=== PATIENT | male | born 1945 | race Caucasian/White ===

== ENCOUNTER 2017-11-10 05:28 | Day surgery (SDC) | payer OTHER ==
[~2017-11-10] VITALS: Ht 175.3 cm; Wt 87.1 kg
--- NOTE | ~2017-11-10 | O ---
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 PROCEDURE: Right lower lid ectropion repair with right lower lid and cheek lift and full thickness skin graft from right shoulder to right lower lid. SURGEON: Sarath Bridges M.D. DIRECTOR HOSPICE OPERATIONS: None. ANESTHESIA: General. COMPLICATIONS: None. 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 He presents today for right lower lid and cheek procedure in order to attempt to improve the orbital anatomy such that he will be able to wear a prosthesis. Informed consent was obtained to include but not limited to the potential risk for bleeding, infection, and the failure to improve the problem, necessitating further surgery. DESCRIPTION OF PROCEDURE: The patient was taken to the operating room where general anesthesia was administered. The right lower lid, the right cheek, the right lateral canthus, the right medial canthus, the right infratemporal fossa and the right supraclavicular areas were all anesthetized with Xylocaine with epinephrine mixed with Marcaine and Wydase. The patient was subsequently prepped and draped in the usual sterile fashion. A moistened sponge was placed on the left eye. The right lateral canthus was then clamped with a Russell clamp and a sharp canthotomy and cantholysis was performed. There was a very dense cicatrix from [address] [address] OPERATIVE REPORT Name: JAKE VIZCARRA Room #: 150-4 [facility]..#: [id number] Admission: 11/10/17 Attend Phys: Sarath Bridges MD Discharge: Date of : 49 Report #: [id number] his prior trauma holding the right lower lid margin and the lower lid retractors to the inferior orbital rim. A tarsal strip was prepared laterally, removing the lash bearing portion of the redundant lid margin and the redundant tarsal plate. Hemostasis was then re-achieved. A subciliary incision was then made across the entire width of the lid. The dissection was then carried down into the cheek through the lower lid to release all of the cicatrix allowing the lower lid and cheek to be elevated as a unit. Hemostasis was achieved with the minimal use of monopolar cautery. The cicatrix was quite impressive. A medium conformer was then placed in the socket. The lower lid and cheek were then resuspended with interrupted 5-0 Prolene sutures. The ectropion repair was then completed as the tarsal strip was reattached to the internal portion of the lateral orbital tubercle with 5-0 Prolene sutures. The deficient anterior lamella and the right lower lid was then outlined in the supraclavicular area. It was then incised with a 15 blade and a full thickness skin graft harvested utilizing thin section techniques. That donor site was then closed with interrupted buried 5-0 Vicryl sutures deep and then a 5-0 Prolene suture in a subcuticular fashion. It was then dressed with an Op-Site dressing. The full thickness skin graft was then defatted and subsequently secured into its host site in the right lower lid and cheek with cardinal bites of 7-0 Vicryl suture and then 6-0 plain gut suture. Erythromycin ointment was then placed in the socket. The wound was then dressed very meticulously to ensure that the pressure on the right lower lid over the skin graft was sufficient to hold it firmly. Two eye pads and silk tape were then placed in addition to Mastisol. The patient was subsequently transported to the recovery area having tolerated the procedures well with no anesthetic or operative complications being noted. By: [id number] Sarath Bridges MD /nt
[~2017-11-10 05:28] MED LIST: BENADRYL25 MG PO; BREO ELLIPTA 11 EACH INH; FISH OIL 1,001000 M2 PO; MELATONIN3 MG PO; MULTIVITAMINS PO; TYLENOL325 M1 PO; VIIBRYD10 MG PO; ZOCOR 10 MG TAB10 MG PO; ZYRTEC10 M5 PO
[2017-11-10 12:06] VITALS: BP 151/74
== END 2017-11-10 14:30 | disposition home or self-care (01) ==
LOC: OR 05:28 → TBA 05:28 → OR 12:21
DX: H02.102 Unspecified ectropion of right lower eyelid (principal); H02.532 Eyelid retraction right lower eyelid; H02.202 Unspecified lagophthalmos right lower eyelid; Q11.1 Other anophthalmos; E78.00 Pure hypercholesterolemia, unspecified; J43.9 Emphysema, unspecified; F32.9 Major depressive disorder, single episode, unspecified; F41.9 Anxiety disorder, unspecified; Z85.828 Personal history of other malignant neoplasm of skin; Z98.890 Other specified postprocedural states; Z87.891 Personal history of nicotine dependence; Z79.899 Other long term (current) drug therapy
CPT/HCPCS: 50010; 50101; 50386; 50398; 51636; 51854; 56527; 56528; 56531; 64037; 70005